=== PATIENT | male | born 1975 | race African-American/Black ===

== ENCOUNTER 2017-10-25 22:46 | Emergency (ER) | payer SELFPAY ==
[~2017-10-25] VITALS: Ht 172.7 cm; Wt 71.0 kg
[2017-10-26 08:40] VITALS: BP 112/67
== END 2017-10-26 08:49 | disposition home or self-care (01) ==
LOC: ER 22:46
DX: S61.051A Open bite of right thumb without damage to nail, initial encounter (principal); W54.0XXA Bitten by dog, initial encounter; Y93.F1 Activity, caregiving, bathing; Y92.89 Other specified places as the place of occurrence of the external cause; Z96.649 Presence of unspecified artificial hip joint
CPT/HCPCS: 99283; X7700; Z7610

== ENCOUNTER 2017-12-05 01:54 | Emergency (ER) | payer SELFPAY ==
[~2017-12-05] VITALS: Ht 172.7 cm; Wt 58.3 kg
[2017-12-05] MEDS ORDERED: CYCLOBENZAPRINE 10MG TABLET PO ONE (09:15)
[2017-12-05] MEDS ORDERED: IBUPROFEN 800MG TABLET PO ONE (09:15)
[2017-12-05 11:07] VITALS: BP 122/70
== END 2017-12-05 11:08 | disposition home or self-care (01) ==
LOC: ER 01:54
DX: M25.512 Pain in left shoulder (principal); M54.5 Low back pain; F17.200 Nicotine dependence, unspecified, uncomplicated; V89.2XXA Person injured in unspecified motor-vehicle accident, traffic, initial encounter; Z96.641 Presence of right artificial hip joint; Y93.89 Activity, other specified; Y92.89 Other specified places as the place of occurrence of the external cause; Y99.8 Other external cause status
CPT/HCPCS: 72110; 73030; 99284

== ENCOUNTER 2018-08-27 09:56 | Emergency (ER) | payer MEDICAID ==
[~2018-08-27] VITALS: Ht 172.7 cm; Wt 61.0 kg
[2018-08-27] MEDS ORDERED: IBUPROFEN 800MG TABLET PO ONE (13:15)
[2018-08-27] MEDS ORDERED: BACITRACIN ZINC OINT UDPKT TOP ONE ×2 (13:15)
[2018-08-27] MEDS ORDERED: LIDOCAINE HCL/PF 1% 10 MG/ML 5ML VIAL IJ ONE (13:15)
[2018-08-27 15:20] VITALS: BP 120/79
== END 2018-08-27 15:30 | disposition home or self-care (01) ==
LOC: ER 09:56
DX: L02.01 Cutaneous abscess of face (principal)
CPT/HCPCS: 10060; 99283; J3490; Z7610